=== PATIENT | female | born 1965 | race Caucasian/White ===

== ENCOUNTER → 2018-03-30 | Outpatient (CLI) | payer OTHER ==
[2018-03-30 16:25] LABS: BUN/Creatinine Ratio 20.3; Calcium 8.6 mg/dL (8.5-10.1); Magnesium 2.4 mg/dL (1.6-2.6); Potassium 3.9 mmol/L (3.5-5.1)
[2018-03-30 16:33] LABS: Free T4 (Free Thyroxine) 1.02 ng/dL (0.89-1.76)
[2018-03-30 16:34] LABS: Folate (Folic Acid) 18.68 ng/mL (5.38-24)
== END | disposition home or self-care (01) ==
LOC: Rad HDHVI 12:57
PROVIDERS: ATTEND Internal Medicine Cardiovascular Disease
DX: I48.91 Unspecified atrial fibrillation (principal); I47.9 Paroxysmal tachycardia, unspecified; D52.9 Folate deficiency anemia, unspecified; E83.40 Disorders of magnesium metabolism, unspecified; E03.9 Hypothyroidism, unspecified; D51.9 Vitamin B12 deficiency anemia, unspecified; E51.9 Thiamine deficiency, unspecified; I10 Essential (primary) hypertension
CPT/HCPCS: 36415; 80048; 82607; 82746; 83735; 84439; 84443; 93306

== ENCOUNTER → 2018-05-04 | Outpatient (CLI) | payer OTHER ==
[~2018-05-04] MED LIST: LEV50T PO
[2018-05-04 09:00] VITALS: BP 133/86
[2018-05-04 09:15] VITALS: BP 130/85
[2018-05-04 11:37] LABS: Basophils # (auto) 0 uL; Eosinophils # (auto) 0 uL
[2018-05-04 11:41] LABS: Basophils % (auto) 0.3 % (0.0-2.0); Eosinophils % (auto) 0.3 % (0.0-7.0); Hematocrit 45.5 % (36.0-46.0); Lymphocytes # (auto) 1.2 uL; Lymphocytes % (auto) 17.5 % (10.0-50.0); Mean Corpuscular Hemoglobin 34.3 pg (28.0-32.0); Monocytes # (auto) 0.6 uL; Monocytes % (auto) 8.4 % (0.0-12.0); Neutrophils # (auto) 4.9 uL; Neutrophils % (auto) 73.5 % (37.0-80.0); Nucleated Red Blood Cells % 0.3 %; Platelet Count (auto) 166 10^3/uL (140-450); Red Blood Cells 4.37 10^6/uL (4.0-5.20); Red Cell Distribution Width 12.1 % (11.8-14.3); White Blood Cell 6.6 10^3/uL (4.4-10.8)
[2018-05-04 11:50] LABS: INR 0.88 (0.9-1.15); Partial Thromboplastin Time 29.1 sec (23.78-33.04); Prothrombin Time 9.5 sec (9.27-12.13)
[2018-05-04 11:56] LABS: Calcium 8.6 mg/dL (8.5-10.1); Potassium 4.1 mmol/L (3.5-5.1)
[2018-05-04 12:00] LABS: BUN/Creatinine Ratio 17.9
== END | disposition home or self-care (01) ==
LOC: Rad HDHVI 08:49
PROVIDERS: ATTEND Internal Medicine Cardiovascular Disease
DX: Z01.818 Encounter for other preprocedural examination (principal); D64.9 Anemia, unspecified; R79.1 Abnormal coagulation profile; I10 Essential (primary) hypertension
CPT/HCPCS: 36415; 71046; 80048; 85025; 85610; 85730; 93005; G0463

== ENCOUNTER 2018-05-08 12:01 | Day surgery (SDC) | payer OTHER ==
[~2018-05-08] VITALS: Ht 175.3 cm; Wt 54.0 kg
[2018-05-08] MEDS ORDERED: VANCOMYCIN HCL 1000 MG VL ONE (14:32)
[2018-05-08] MEDS ORDERED: VANCOMYCIN 1GM/250ML 250 ML IV ONE (14:32)
[2018-05-08] MEDS ORDERED: fentaNYL CITRATE 100 MCG/2 ML VL ONE (14:32)
[2018-05-08] MEDS ORDERED: MIDAZOLAM HCL 1MG/1ML-2 ML VIAL ONE (14:32)
[2018-05-08] MEDS ORDERED: cefTRIAXone 1GM/50ML D5W 50 ML IV ONE (14:38)
[2018-05-08] MEDS ORDERED: LIDOCAINE 2%HCL (LOCAL ANESTH.) INJ 20ML MDV ONE (14:58)
== END 2018-05-08 17:20 | disposition home or self-care (01) ==
LOC: CATH 12:01
PROVIDERS: ATTEND Internal Medicine Cardiovascular Disease
DX: I47.1 Supraventricular tachycardia (principal); R00.2 Palpitations; I10 Essential (primary) hypertension; E03.9 Hypothyroidism, unspecified; F17.210 Nicotine dependence, cigarettes, uncomplicated
CPT/HCPCS: 33282; A6257; C1764; J0696; J2250; J3010; J3370; J7030; 99152

== ENCOUNTER → 2018-05-14 | Outpatient (CLI) | payer OTHER ==
[2018-05-14 09:47] VITALS: BP 117/77
[2018-05-14 10:15] VITALS: BP 119/81
--- NOTE | 2018-05-14 10:15 | NUR ---
Wound Care Wound care provided per MD order. Patient tolerated well and verbalized dressing care instructions. Follow up in clinic as directed. See e-MAR for medications given during this visit.
== END | disposition home or self-care (01) ==
LOC: CHF HDHVI 09:49
PROVIDERS: ATTEND Internal Medicine Cardiovascular Disease
DX: I48.91 Unspecified atrial fibrillation (principal); R55 Syncope and collapse; I10 Essential (primary) hypertension
CPT/HCPCS: G0463

== ENCOUNTER → 2018-05-28 | Outpatient (CLI) | payer OTHER ==
[2018-05-28 16:27] VITALS: BP 132/88
--- NOTE | 2018-05-28 16:27 | NUR ---
CHF STAPLE REMOVAL ORDERED FOR INCISION SITE BY DR. CHIANG
[2018-05-28 16:45] VITALS: BP 132/88
--- NOTE | 2018-05-28 16:45 | NUR ---
CHF Wound Care Wound care provided per MD order. Patient tolerated well and verbalized dressing care instructions. Follow up in clinic as directed. See e-MAR for medications given during this visit. ONELIA REMOVED. STERI STRIPS PLACED. SITE BENIGN .Discharge Instructions See e-MAR for any mediations given with this visit. Patient education given on disease process. Patient verbalized understanding. Previous labs reviewed. Patient discharged in stable condition with after care instructions and follow up appointment. F/U DR. CHIANG 05/30/18
== END | disposition home or self-care (01) ==
LOC: CHF HDHVI 16:23
PROVIDERS: ATTEND Internal Medicine Cardiovascular Disease
DX: I10 Essential (primary) hypertension (principal); D64.9 Anemia, unspecified; R55 Syncope and collapse
CPT/HCPCS: G0463

== ENCOUNTER → 2018-06-04 | Outpatient (CLI) | payer OTHER ==
[~2018-06-04] MED LIST changes: +BACITRACIN TOP OINT 1 UD PKG TOP ONE; +cefTRIAXone 1GM/50ML D5W 50 ML IV ONE; +cefTRIAXone SOD 1,000 MG VL ONE
--- NOTE | 2018-06-04 11:50 | NUR ---
PT. RECEIVED FROM BACK OFFICE FOR IV ABX V.O. DR. CHIANG PRIOR TO SURGICAL PROCEDURE. OPEN 1/2 INCH SURGICALSITE FROM LOOP RECORDER NOTED WITH NO DRAINAGE NOTED, AND NONE DESCRIBED BY PT. SITE WITHOUT REDNESS OR WARMTH, OR ANY OTHER S&S OF INFECTION NOTED. ORDERS RECEIVED AND CARRIED OUT.
--- NOTE | 2018-06-04 12:05 | NUR ---
IV insertion IV access obtained, via clean sterile technique by inserting 22 gauge catheter at after attempt(s). IV secured properly. No trauma to site. Patient tolerated procedure well.
--- NOTE | 2018-06-04 12:10 | NUR ---
MEDS: MANDY, ONE GM IVPB STARTED PER MD ORDER.
--- NOTE | 2018-06-04 12:30 | NUR ---
MEDS COMPLETED. PT TAKEN BACK TO BACK OFFICE AND PREPPED FOR PROCEDURE BY DR. CHIANG, WITH THIS RN, AND FOREIGN BOND ASSIST.
--- NOTE | 2018-06-04 12:45 | NUR ---
DR. CHIANG AT BEDSIDE, WITH CARE RELINQUISHED FOR SITE CARE. ASSISTING DR. CHIANG NEEDED WITH M.A. ASSIST. LOOP RECORDER REMOVED WITHOUT DIFFICULTY. PT. TOLERATED PROCEDURE WELL. STERI STRIPS APPLIED BY DR. CHIANG, WITH NON OCCLUSIVE AND TEGADERM OVER SITE.
--- NOTE | 2018-06-04 13:05 | NUR ---
IV removal IV DC'd with sterile technique, catheter fully intact. Pressure dressing applied to site. Patient tolerated procedure well. Discharged with aftercare instructions per MD. NOTE: PT. STATES SHE HAS ABX FOR KEFLEX PER MD INSTRUCTIONS.
== END | disposition home or self-care (01) ==
LOC: CHF HDHVI 11:53
PROVIDERS: ATTEND Internal Medicine Cardiovascular Disease
DX: T81.31XA Disruption of external operation (surgical) wound, not elsewhere classified, initial encounter (principal); I48.91 Unspecified atrial fibrillation; I10 Essential (primary) hypertension; E03.9 Hypothyroidism, unspecified; F17.210 Nicotine dependence, cigarettes, uncomplicated
CPT/HCPCS: 96365; G0463; J0696